=== PATIENT | male | born 1980 | race Two or more races ===

== ENCOUNTER 2024-05-05 11:04 | Emergency (ER) | payer MEDICAID, OTHER ==
[~2024-05-05] VITALS: Ht 175.3 cm; Wt 98.7 kg
[2024-05-05] MEDS: cloNIDine HCL 0.1 MG TAB PO ONE (12:05)
[2024-05-05 12:17] LABS: Chloride 109 mmol/L (98-107); Potassium 4.1 mmol/L (3.5-5.1); Sodium 139 mmol/L (136-145)
[2024-05-05 12:18] LABS: Anion Gap 4 (5-15); Basophils # (auto) 0.1 10 ^3/uL (0-0.2); Basophils % (auto) 0.7 % (0.0-2.0); Carbon Dioxide 26 mmol/L (20-30); Eosinophils # (auto) 0.1 10 ^3/uL (0-0.8); Hematocrit 43.9 % (41.0-53.0); Hemoglobin 15.3 g/dL (13.5-17.5); Lymphocytes # (auto) 1.9 10 ^3/uL (0.4-5.4); Lymphocytes % (auto) 24.9 % (10.0-50.0); Mean Corpuscular Hgb Conc. 34.9 g/dL (32.0-36.0); Monocytes # (auto) 0.5 10 ^3/uL (0-1.3); Monocytes % (auto) 6.2 % (0.0-12.0); Neutrophils # (auto) 5.2 10 ^3/uL (1.6-8.6); Neutrophils % (auto) 67.2 % (37.0-80.0); Red Blood Cells 4.93 10^6/uL (4.5-5.90); Red Cell Distribution Width 13.2 % (11.8-14.3); White Blood Cell 7.8 10^3/uL (4.4-10.8)
[2024-05-05 12:19] LABS: Calcium 9.5 mg/dL (8.7-10.4)
[2024-05-05 12:23] LABS: BUN/Creatinine Ratio 10.3 (10.0-20.0); Blood Urea Nitrogen 10 mg/dL (9-23); Glucose 90 mg/dL (74-106)
[2024-05-05] MEDS ORDERED: LISI-285 PO (12:50)
[2024-05-05] MEDS ORDERED: AML5T PO (12:50)
[2024-05-05 12:56] VITALS: BP 156/98; PULSE 75; RESP 17; TEMP 99.2; O2SAT 98
== END 2024-05-05 12:58 | disposition home or self-care (01) ==
LOC: ER 11:04
DX: I16.0 Hypertensive urgency (principal); I10 Essential (primary) hypertension; R42 Dizziness and giddiness
CPT/HCPCS: 36415; 80048; 85025